=== PATIENT | female | born 1960 | race Caucasian/White ===

== ENCOUNTER → 2017-11-13 08:04 | Outpatient (CLI) | payer MEDICARE, MEDICAID, SELFPAY ==
[2017-11-13 08:30] VITALS: BP 120/65; PULSE 85; RESP 18; O2SAT 100
== END ==
PROVIDERS: Family Provider Family Medicine; PCP Family Medicine Geriatric Medicine; Visit Provider Family Medicine Geriatric Medicine
DX: M81.0 Age-related osteoporosis without current pathological fracture (principal)
CPT/HCPCS: 96372; J0897

== ENCOUNTER 2018-05-19 08:44 | Outpatient (CLI) | payer MEDICARE, MEDICAID, SELFPAY ==
[2018-05-19 08:56] VITALS: BP 110/62; PULSE 92; RESP 20; TEMP 36.6; O2SAT 98
== END 2018-05-19 09:20 | disposition home or self-care (01) ==
LOC: INF 08:45
PROVIDERS: Visit Provider Emergency Medicine
DX: M81.0 Age-related osteoporosis without current pathological fracture (principal)
CPT/HCPCS: 96372; J0897

== ENCOUNTER 2021-03-22 09:06 | Outpatient (CLI) | payer MEDICARE, MEDICAID, SELFPAY ==
[2021-03-22 09:33] VITALS: BP 136/64; PULSE 68; RESP 20; TEMP 36.9; O2SAT 95
== END 2021-03-22 09:35 | disposition home or self-care (01) ==
LOC: INF 09:08
PROVIDERS: PCP Emergency Medicine; Visit Provider Emergency Medicine
DX: M81.0 Age-related osteoporosis without current pathological fracture (principal)
CPT/HCPCS: 96372; J0897

== ENCOUNTER 2021-09-26 08:18 | Outpatient (CLI) | payer MEDICARE, MEDICAID, SELFPAY ==
[2021-09-26 08:48] VITALS: BP 146/82; PULSE 82; RESP 16
== END 2021-09-26 08:48 | disposition home or self-care (01) ==
LOC: INF 08:20
PROVIDERS: PCP Emergency Medicine; Visit Provider Emergency Medicine
DX: M81.0 Age-related osteoporosis without current pathological fracture (principal)
CPT/HCPCS: 96372; J0897

== ENCOUNTER 2022-04-02 07:53 | Outpatient (CLI) | payer MEDICARE, MEDICAID, SELFPAY ==
[2022-04-02 08:15] VITALS: BP 137/88; PULSE 86; RESP 18; O2SAT 99
== END 2022-04-02 08:30 | disposition home or self-care (01) ==
LOC: INF 07:55
PROVIDERS: PCP Emergency Medicine
DX: M81.0 Age-related osteoporosis without current pathological fracture (principal)
CPT/HCPCS: 96372; J0897

== ENCOUNTER 2023-07-02 12:31 | Outpatient (CLI) | payer MEDICARE, MEDICAID, SELFPAY ==
[2023-07-02 13:00] VITALS: BP 147/89; PULSE 102; RESP 18; O2SAT 98
[2023-07-02] MEDS: DENOSUMAB 60 MG/ML SYRINGE SQ (13:00)
== END 2023-07-02 13:05 | disposition home or self-care (01) ==
PROVIDERS: PCP Emergency Medicine; Visit Provider Internal Medicine Medical Oncology
DX: M81.0 Age-related osteoporosis without current pathological fracture (principal)
CPT/HCPCS: 96372; J0897

== ENCOUNTER 2024-01-07 13:21 | Outpatient (CLI) | payer MEDICARE, MEDICAID, SELFPAY ==
[2024-01-07] MEDS: DENOSUMAB 60 MG/ML SYRINGE SQ (13:40)
[2024-01-07 13:50] VITALS: BP 151/82; PULSE 101; RESP 18; O2SAT 100
== END 2024-01-07 13:50 | disposition home or self-care (01) ==
LOC: INF 13:23
PROVIDERS: PCP Emergency Medicine; Visit Provider Emergency Medicine
DX: M81.0 Age-related osteoporosis without current pathological fracture (principal)
CPT/HCPCS: 96372; J0897

== ENCOUNTER 2024-07-14 15:06 | Outpatient (CLI) | payer MEDICARE, MEDICAID, SELFPAY ==
[2024-07-14] MEDS: DENOSUMAB 60 MG/ML SYRINGE SUBCUT (15:23)
[2024-07-14 15:26] VITALS: BP 150/80; PULSE 100; RESP 20; O2SAT 98
== END 2024-07-14 15:40 | disposition home or self-care (01) ==
LOC: INF 15:09
PROVIDERS: PCP Emergency Medicine; Visit Provider Emergency Medicine
DX: M81.0 Age-related osteoporosis without current pathological fracture (principal)
CPT/HCPCS: 96372; J0897

== ENCOUNTER 2025-02-09 09:07 | Outpatient (CLI) | payer MEDICARE, MEDICAID, SELFPAY ==
--- OUTSIDE RECORDS SUMMARY | 2025-02-09 09:11 | XMS_ITS | Clinical Summary ---
Author Organization Healthcare Address [address] [place] [address] Care Team Providers Care Inspector Final Assembly Conveyor Line Name Role Phone Pcp, No Primary Care Provider Unavailabl e Family History Medical History Relation Name Comments Diabetes Other 1 Hypertension Other 2 Relation Name Status Comments Other 1 Other 2 Social History Tobacco Use Types Packs/Day Years Used Date Smoking Tobacco: Never Comments Unknown Sex and Gender Information Value Date Recorded Sex Assigned at Not on file Legal Sex Female 6:14 PM EDT Gender Identity Not on file Sexual Orientation Not on file Last Filed Vital Signs Vital Sign Reading Time Taken Comments Blood Pressure - - Pulse - - Temperature - - Respiratory Rate - - Oxygen Saturation - - Inhaled Oxygen Concentration - - Weight 54.2 kg (119 lb 7.8 oz) 03/03/2024 10:45 AM EDT Height 139.7 cm (4' 7 ) 09/19/2019 11:31 AM EDT Body Mass Index 27.77 09/19/2019 11:31 AM EDT Plan of Treatment Health Maintenance Due Date Last Done Comments [facility]-Bone Density Scan 1960 [facility]-Depression Screening 1960 [facility]Medicare Annual Wellness (AWV) 1960 [facility]-Infant/Child/Adol SDOH Screenings 1960 [facility]-Obesity Intervention 01/07/1966 [facility]- SDOH Screenings 01/07/1978 [facility]-Adult SDOH Screenings 01/07/1978 [facility]-DTaP,Tdap,and Td Vaccine s (1 - Tdap) 01/07/1979 [facility]-Pap Smear 01/07/1981 [facility]-Cervical Cancer Screening 01/07/1990 [facility]-HPV/Cotest 01/07/1990 CT Colonography 01/07/2005 Colonoscopy 01/07/2005 FIT-DNA 01/07/2005 FIT 01/07/2005 FOBT 01/07/2005 Sigmoidoscopy 01/07/2005 [facility]-Colorectal Cancer Screening 01/07/2005 [facility]-Breast Cancer Screening 01/07/2010 [facility]-Pneumococcal Vaccine: 50 + Years (1 of 1 - PCV) 01/07/2010 [facility]-Zoster Vaccines (1 of 2) 01/07/2010 [id number] Vaccine (4 - season) 2024 02/07/2021, 07/30/2020, 07/09/2020 [facility]-Influenza Vaccine (#1) 2025 [facility]-RSV Vaccine: 60+ Years o r (1 - 1-dose 75+ series) 01/07/2035 [facility]-Hepatitis C Screening Completed 08/24/2018 HPV Vaccines Aged Out No longer eligi ble based on patient's age to complete this topic [facility]-HIB Vaccines Aged Out No longer e ligible based on patient's age to complete this topic [facility]-Hepatitis A Vaccines Aged Out No longer eligible based on patient's age to complete this topic [facility]-IPV Vaccines Aged Out No longer e ligible based on patient's age to complete this topic [facility]-Rotavirus Vaccines Aged Out No lo nger eligible based on patient's age to complete this topic Procedures Procedure Name Priority Date/Time Associated Diagnosis Comments HEPATITIS C VIRUS (HCV) QUANTITATIVE PCR Routine 08/24/2018 9:01 AM EDT from Last 3 Months or Most Recently Relevant to Health Maintenance Results * Hepatitis C Virus (HCV) Quantitative PCR (08/24/2018 9:01 AM EDT) Hepatitis C Virus (HCV) Quantitative Viral Load Log Result <1.08 [facility] Hepatitis C Virus (HCV) Quantitative IU/mL Result <12 [facility] HCV Quantitative PCR Comment Reference Interval: Not Detected, Log IU/mL <1.08, IU/mL <12 [facility] Comment: The [facility] M2000 HCV test is a Real Time in vitro nucleic acid amplification test for the quantitation of Hepatitis C Viral (HCV) RNA in human serum in HCV-infected individuals. It is intended for use as an aid in the management of HCV-infected individuals undergoing anti-viral therapy. The dynamic range for this test is log10 = 1.08 to 8.00and/or 12 to 100,000,000 IU/mL. The limit of detection (LOD) for this assay is 12 IU/mL and the limit of quantitation (LOQ) is 12 IU/mL. This assay is FDA approved for clinical use. 08/24/2018 9:01 AM EDT 08/24/2018 10:00 AM EDT Narrative [facility] - 08/24/2018 11:10 PM EDT HCV RNA NOT DETECTED HCV RNA NOT DETECTED HCV RNA NOT DETECTED Jacqueline Mckinnon APRN LAB BLOOD ORDERABLES Final R esult [facility] from Last 3 Months or Most Recently Relevant to Health Maintenance Insurance DR BARRETO, DANIELLE [id number] MEDICARE Care Teams Inspector Final Assembly Conveyor Line Relationship Specialty Start Date End Date Pcp, [place] [address] PCP - General Family Medicine 03/03/24
[2025-02-09] MEDS: DENOSUMAB 60 MG/ML SYRINGE SUBCUT (09:18)
[2025-02-09 09:25] VITALS: BP 131/74; PULSE 90; RESP 18; TEMP 36.8; O2SAT 98
== END 2025-02-09 09:25 | disposition home or self-care (01) ==
LOC: INF 09:09
PROVIDERS: PCP Emergency Medicine; Visit Provider Emergency Medicine
DX: Z01.89 Encounter for other specified special examinations (principal)
CPT/HCPCS: 96372; J0897